=== PATIENT | female | born 1950 | race African-American/Black ===

== ENCOUNTER 2018-05-10 11:31 | Inpatient (IN) | payer OTHER ==
[~2018-05-10] VITALS: Ht 172.7 cm; Wt 107.5 kg
--- NOTE | ~2018-05-10 | EKG ---
[place] [address] [address] [facility] [place] [address] ELECTROCARDIOGRAM REPORT Name: KENJI OTOOLE Room #: 431-P ADM IN M.R.#: [id number] Admission: 05/10/18 Attend Phys: Edward Younger MD Discharge: Date of : 52 Report #: [id number] THIS REPORT FOR: //name// [facility] ED Test Date: 2018-05-10 Test Time: 13:42:14 Pat Name: KENJI OTOOLE Department: Room: [facility] Gender: F Technology Director: JOSÉ : 1950 Requested By: Renae Garcia Order Number: [id number] MD: Heath Nunn Measurements Intervals [place] Rate: 90 P: 68 IA: 130 QRS: 1 QRSD: 87 T: 60 QT: 366 QTc: 448 Interpretive Statements Sinus rhythm LAE, consider biatrial enlargement Borderline repolarization abnormality Minimal ST elevation, anterior leads No previous ECG available for comparison Electronically Signed On 05-12-2018 20:24:43 [employer] by Heath Nunn [email or web address] <ELECTRONICALLY SIGNED> By: Heath Nunn MD 05/12/182023 D: [id number] Heath uNnn MD /ADRIAN
--- NOTE | ~2018-05-10 | HC ---
[facility] [place] [address] CONSULTATION Name: SYDNIEKENJI Rubén Room #: 431-P [facility] IN ..#: [id number] Admission: 05/10/18 Attend Phys: Edward Younger MD Discharge: Date of : 52 Report #: [id number] THIS REPORT FOR: //name// CC: Edward Pimentelelle Colt DATE OF SERVICE: 05/11/2018 REASON FOR CONSULTATION: Left ankle fracture. HISTORY OF PRESENT ILLNESS: The patient is a 68-year-old female who fell and sustained an ankle injury yesterday. She was brought to the Emergency Department, diagnosed with an ankle fracture as well as acute dehydration and diarrhea. REVIEW OF SYSTEMS: NEUROLOGIC: Denies numbness or tingling in her extremities. MUSCULOSKELETAL: See HPI. ALLERGIES: IBUPROFEN AND CODEINE. SOCIAL HISTORY: Lives at home with her and 3 small children. Alcohol and smoking status is unknown. MEDICATIONS: Reported medications include levothyroxine. PAST SURGICAL HISTORY: Right total knee arthroplasty, cyst removed from her uterus, cholecystectomy. PAST MEDICAL HISTORY: Hypothyroidism and sleep apnea. LABORATORY DATA: Done on 05/11/2018 show white blood cell count 6.1, hemoglobin 12.2, hematocrit 36.7, platelet count 128. Chemistry is grossly normal with an elevated creatinine of 1.2 today. PHYSICAL EXAMINATION: GENERAL: The patient is alert and oriented. She interacts appropriately. She is a well-developed, well-nourished female, in no acute distress. VITAL SIGNS: Most recent vital signs show temperature of 37, heart rate 72, respiratory rate 18, blood pressure 153/58, pulse oximetry 98% on room air. EXTREMITIES: Examination of her left lower extremity, she has moderate edema to the ankle. I am able to create a wrinkle. She has brisk capillary refill. Sensation is intact to light touch throughout. She has tenderness to palpation medially and laterally at the ankle. No foot, leg or knee tenderness. RADIOGRAPHS: AP, lateral and mortise view of the left ankle show an oblique [facility] [address] [place] [address] CONSULTATION Name: KENJI OTOOLE Room #: 431-P [facility] IN ..#: [id number] Admission: 05/10/18 Attend Phys: Edward Younger MD Discharge: Date of : 52 Report #: [id number] fibular fracture with lateral translation of the talus and there is probably a small avulsion fracture of the deltoid ligament. IMPRESSION AND PLAN: Left ankle fracture with lateral subluxation of the talus. At this point, I would recommend surgical fixation. This could be done when she is medically stable. She does have some issues with dehydration and diarrhea. We will wait for medical clearance. We will tentatively put her on the schedule for tomorrow. We discussed the risks, benefits, alternatives and complications including but not limited to infection, damage to vessels or nerves, nonunion or malunion, hardware failure, hardware rotation and stiffness. Informed consent was obtained. Questions were encouraged and answered to the best of my ability. Encouraged elevation and ice tonight. By: [id number] Abril Rm MD /nt
--- NOTE | ~2018-05-10 | O ---
[facility] [place] [address] OPERATIVE REPORT Name: KENJI OTOOLE Room #: 431-P [facility] IN .R.#: [id number] Admission: 05/10/18 Attend Phys: Edward Younger MD Discharge: Date of : 52 Report #: [id number] THIS REPORT FOR: //name// CC: Edward Pimentelguilherme Echevarriageorges DATE OF SERVICE: 05/12/2018 PREOPERATIVE DIAGNOSIS: Left lateral malleolus ankle fracture. POSTOPERATIVE DIAGNOSIS: Left lateral malleolus ankle fracture. PROCEDURE PERFORMED: Open reduction and internal fixation of left lateral malleolus ankle fracture. SURGEON: Abril Rm MD ANESTHESIA: General mask anesthesia. ESTIMATED BLOOD LOSS: 50 mL. TOURNIQUET TIME: 55 minutes. COMPLICATIONS: None. CONDITION: Stable. DISPOSITION: Recovery room. INDICATIONS: The patient is a 68-year-old female with the above-mentioned diagnosis. She elects for operative treatment. The risks, benefits, alternatives and complications were discussed and included but were not limited to infection, damage to vessels or nerves, nonunion, malunion, hardware failure, hardware irritation and stiffness. Informed consent was obtained. The correct extremity was identified and labeled by myself after verbal confirmation of the patient as well as visual confirmation and signed informed consent. DESCRIPTION OF PROCEDURE: The patient was brought back to the operating room and placed on the operating table in the supine position. She received preoperative antibiotics. Tourniquet was placed over padding on the patient's left lower extremity. The left lower extremity was sterilely prepped and draped in the usual fashion. Final timeout was taken to verify correct patient, operative procedure, operative site, all concurred. The leg was elevated, exsanguinated and the tourniquet inflated. Next, a lateral incision measuring approximately 10 cm was made over the fibula. Dissection was carried down through subcutaneous tissue with tenotomy scissors. The periosteum was [facility] [address] [place] [address] OPERATIVE REPORT Name: KENJI OTOOLE Room #: 431-P [facility] [place] [facility]#: [id number] Admission: 05/10/18 Attend Phys: Edward Younger MD Discharge: Date of : 52 Report #: [id number] identified and incised. The fracture fragments were easily identified, cleaned of clot and debris and provisionally reduced. Next, a lag screw was placed from anterior to posterior. This was felt to originally have fair fixation and eventually the fixation was lost. The lag screw again was replaced and did have better fixation the second time. Next, an 8-hole 1/3 tubular plate was applied to the bone as a neutralization plate. Multiple AP, lateral and mortise views were taken during the entire procedure, which showed good position of the talus. There was no lateral shift and the fracture was reduced anatomically. The 6 cortices were obtained proximally. Three screws were placed distally. Screws were not able to be placed right at the lag screw area as these were directly in the fracture site. The fixation proximally was excellent, distally was moderate. The ankle was stable. AP, lateral and mortise views as well as live fluoroscopic views showed good position of the talus within the tibia. The wound was thoroughly irrigated. External rotation did not show any widening of the mortise. The wound was thoroughly irrigated. The deep tissue periosteum was closed with 2-0 Vicryl and the subcutaneous tissue was closed with 2-0 Vicryl. The skin was closed with jazz. Approximately 10 mL of 0.25% Marcaine was injected subcutaneously. The wound was dressed with Xeroform and sterile gauze. She was placed in a bulky dressing and in a sugar tong and posterior slab splint. All toes were pink with brisk capillary refill at the conclusion of the case after deflation of tourniquet. All sponge and needle counts were correct. The patient was transferred to postoperative recovery room in stable condition. By: [id number] Abril Rm MD /sudeep
[~2018-05-10 11:31] MED LIST: AMOXICILLIN 50500 MG PO; FLONASE 0.05%50 MCG NASAL; LEVOTHYROXIN0.088 MG PO; LEVOTHYROXIN0.125 M1 PO; TYLENOL325 MG PO; XANAX 0.25 MG0.25 MG PO
[2018-05-10 11:34] VITALS: BP 145/66
[2018-05-10 13:09] LABS: URINE BLOOD 2+ (Negative); URINE COLOR YELLOW; URINE GLUCOSE-RANDOM* NEGATIVE (Negative); URINE KETONES 1+ (Negative); URINE LEUKOCYTES TRACE (Negative); URINE NITRITE NEGATIVE (Negative); URINE PROTEIN (DIPSTICK) 2+ (Negative); URINE SPECIFIC GRAVITY >= 1.030 (1.005-1.035); URINE UROBILINOGEN 0.2 E.U./dl (0.2-1.0)
[2018-05-10 13:10] LABS: ABSOLUTE NEUTROPHILS 11.3 thou/uL (1.4-8.2); BASOPHILS 0.4 % (0.0-2.0); EOSINOPHILS 0.4 % (0.0-3.0); HEMATOCRIT 40.7 % (37.0-47.0); HEMOGLOBIN 13.7 gm/dL (12.0-15.0); LYMPHOCYTES 4.2 % (24.0-44.0); MCH 31.8 pg (26.0-34.0); MCHC 33.6 g/dL (28.0-37.0); MCV 94.7 fL (80.0-100.0); MONOCYTES 6.8 % (1.0-8.0); POLYS 88.2 % (36.0-66.0); RDW 14.5 % (10.5-14.5); WBC 12.8 thou/uL (4.0-11.0)
[2018-05-10 13:11] LABS: ICTOTEST (BILI CONFIRMATORY) Negative (Negative); URINE BILIRUBIN NEGATIVE (Negative); URINE CLARITY HAZY
[2018-05-10 13:17] LABS: SQUAMOUS >10 Many /LPF (0-3); URINE WBC 0-5 Rare /HPF (0-5)
[2018-05-10 13:18] LABS: BACTERIA >30 Many /HPF (None Seen); URINE RBC 3-10 Few /HPF (0-2)
[2018-05-10 13:20] LABS: CASTS None Seen /LPF (None Seen); CRYSTALS None Seen /LPF (None Seen)
[2018-05-10 13:22] LABS: ANION GAP 17 mmol/L (7-16); BUN 17 mg/dL (7-18); CALCIUM 9.9 mg/dL (8.5-10.1); CHLORIDE 99 mmol/L (98-107); CO2 18 mmol/L (21-32); CREATININE 1.9 mg/dL (0.6-1.0); GLUCOSE 151 mg/dL (74-106); POTASSIUM 3.8 mmol/L (3.5-5.1); SODIUM 134 mmol/L (136-145)
[2018-05-10 13:30] LABS: ALBUMIN 3.8 g/dL (3.4-5.0); SGOT 47 U/L (15-37); SGPT 36 U/L (30-65); TOTAL BILIRUBIN 0.6 mg/dL (<0.1-1.0); TOTAL PROTEIN 9.7 g/dL (6.4-8.2); TROPONIN-I <0.06 ng/mL (<0.06)
[2018-05-10 13:54] LABS: LARGE PLATELETS RARE; PLATELET COUNT 168 thou/uL (150-400)
[2018-05-10 17:20] VITALS: BP 166/56
[2018-05-10 18:19] VITALS: BP 169/52
[2018-05-10 18:29] VITALS: BP 169/52
[2018-05-10 20:00] VITALS: BP 177/104
[2018-05-11 05:00] VITALS: BP 153/58
[2018-05-11 06:32] LABS: HEMATOCRIT 36.7 % (37.0-47.0); HEMOGLOBIN 12.2 gm/dL (12.0-15.0); MCHC 33.2 g/dL (28.0-37.0); MCV 96.4 fL (80.0-100.0); RBC 3.81 mil/uL (4.20-5.00); RDW 14.6 % (10.5-14.5); WBC 6.1 thou/uL (4.0-11.0)
[2018-05-11 06:44] LABS: CALCIUM 8.8 mg/dL (8.5-10.1); CREATININE 1.2 mg/dL (0.6-1.0); POTASSIUM 3.9 mmol/L (3.5-5.1)
[2018-05-11 08:39] VITALS: BP 183/87
[2018-05-11 20:00] VITALS: BP 136/78
[2018-05-11 20:30] VITALS: BP 136/78
[2018-05-12 04:51] VITALS: BP 133/59
[2018-05-12 05:42] LABS: HEMATOCRIT 33.8 % (37.0-47.0); HEMOGLOBIN 11.4 gm/dL (12.0-15.0); MCH 32.5 pg (26.0-34.0); MCHC 33.8 g/dL (28.0-37.0); MCV 96.2 fL (80.0-100.0); RBC 3.52 mil/uL (4.20-5.00); RDW 14.6 % (10.5-14.5); WBC 5.3 thou/uL (4.0-11.0)
[2018-05-12 05:54] LABS: CALCIUM 8.7 mg/dL (8.5-10.1); CREATININE 1.1 mg/dL (0.6-1.0); POTASSIUM 3.7 mmol/L (3.5-5.1)
[2018-05-12 07:43] VITALS: BP 153/48
[2018-05-12 16:30] VITALS: BP 146/57
[2018-05-12 20:22] VITALS: BP 169/75
[2018-05-13 03:38] VITALS: BP 155/88
[2018-05-13 06:17] LABS: HEMATOCRIT 31.9 % (37.0-47.0); HEMOGLOBIN 10.6 gm/dL (12.0-15.0); MCH 32.1 pg (26.0-34.0); MCHC 33.3 g/dL (28.0-37.0); MCV 96.3 fL (80.0-100.0); RBC 3.31 mil/uL (4.20-5.00); RDW 14.5 % (10.5-14.5); WBC 6.3 thou/uL (4.0-11.0)
[2018-05-13 06:40] LABS: CALCIUM 8.5 mg/dL (8.5-10.1); CREATININE 0.9 mg/dL (0.6-1.0); POTASSIUM 4.6 mmol/L (3.5-5.1)
[2018-05-13 07:42] VITALS: BP 169/73
[2018-05-13 15:58] VITALS: BP 159/92
[2018-05-13 20:10] VITALS: BP 182/92
[2018-05-14 06:00] LABS: HEMATOCRIT 30.4 % (37.0-47.0); HEMOGLOBIN 10.2 gm/dL (12.0-15.0); MCHC 33.5 g/dL (28.0-37.0); MCV 95.6 fL (80.0-100.0); RBC 3.18 mil/uL (4.20-5.00); RDW 14.4 % (10.5-14.5); WBC 6.3 thou/uL (4.0-11.0)
[2018-05-14 06:10] LABS: CALCIUM 8.7 mg/dL (8.5-10.1); POTASSIUM 3.6 mmol/L (3.5-5.1)
[2018-05-14 08:45] VITALS: BP 156/72
[2018-05-14] MEDS ORDERED: NORCO 7.5-3251 EACH PO (14:55)
[2018-05-14 15:18] VITALS: BP 156/72
== END 2018-05-14 18:17 | disposition home or self-care (01) | DRG 853 ==
LOC: ER 11:31 → 4E 17:16 → EROBS 17:16 → 4E 17:30 → ENTRNSPT 05-14 16:06 → 4E 05-14 18:17
PROVIDERS: Hospitalist; Physician Assistant
DX: A41.9 Sepsis, unspecified organism (principal); N17.0 Acute kidney failure with tubular necrosis; N39.0 Urinary tract infection, site not specified; E03.9 Hypothyroidism, unspecified; S82.852A Displaced trimalleolar fracture of left lower leg, initial encounter for closed fracture; M13.862 Other specified arthritis, left knee; M13.861 Other specified arthritis, right knee; K52.9 Noninfective gastroenteritis and colitis, unspecified; W01.0XXA Fall on same level from slipping, tripping and stumbling without subsequent striking against object, initial encounter; Y93.89 Activity, other specified; Y92.89 Other specified places as the place of occurrence of the external cause; Y99.8 Other external cause status; Z90.49 Acquired absence of other specified parts of digestive tract; Z79.899 Other long term (current) drug therapy; Z88.5 Allergy status to narcotic agent; Z88.8 Allergy status to other drugs, medicaments and biological substances
CPT/HCPCS: 10084; 27000; 50101; 50386; 50445; 51272; 51412; 56524; 56525; 56667; 57006; 57091; 57180; 62110; 62900; 70005

== ENCOUNTER 2021-03-04 22:25 | Emergency (ER) | payer OTHER ==
[~2021-03-04] VITALS: Ht 165.1 cm; Wt 99.8 kg
[~2021-03-04 22:25] MED LIST changes: +NORCO 7.5-3251 EACH PO
[2021-03-04 23:42] LABS: CALCIUM 9.4 mg/dL (8.5-10.1); CREATININE 1.5 mg/dL (0.6-1.0)
[2021-03-04 23:43] LABS: POTASSIUM 4.3 mmol/L (3.5-5.1)
[2021-03-04 23:48] LABS: ALBUMIN 3.7 g/dL (3.4-5.0); TOTAL BILIRUBIN 0.4 mg/dL (0.2-1.0); TOTAL PROTEIN 9.4 g/dL (6.4-8.2)
[2021-03-05 00:35] LABS: ABSOLUTE NEUTROPHILS 6.7 thou/uL (1.4-8.2); BASOPHILS 0.3 % (0.0-2.0); EOSINOPHILS 1.2 % (0.0-3.0); HEMATOCRIT 35.9 % (37.0-47.0); HEMOGLOBIN 11.7 gm/dL (12.0-15.0); LYMPHOCYTES 8.2 % (24.0-44.0); MCHC 32.6 g/dL (28.0-37.0); MCV 95.1 fL (80.0-100.0); MONOCYTES 11.7 % (1.0-8.0); PLATELET COUNT 149 thou/uL (150-400); POLYS 78.6 % (36.0-66.0); RBC 3.77 mil/uL (4.20-5.00); RDW 14.9 % (10.5-14.5); WBC 8.5 thou/uL (4.0-11.0)
[2021-03-05 01:14] VITALS: BP 129/70
== END 2021-03-05 01:00 | disposition home or self-care (01) ==
LOC: ER 22:25
PROVIDERS: Emergency Medicine
DX: E86.0 Dehydration (principal); E03.9 Hypothyroidism, unspecified; F32.9 Major depressive disorder, single episode, unspecified; M19.90 Unspecified osteoarthritis, unspecified site; Z79.899 Other long term (current) drug therapy; Z88.6 Allergy status to analgesic agent; Z88.5 Allergy status to narcotic agent